=== PATIENT | female | born 1995 | race Hispanic/Latino ===

== ENCOUNTER 2016-08-07 15:44 | Emergency (ER) | payer OTHER ==
[~2016-08-07] VITALS: Ht 154.9 cm; Wt 58.1 kg
[~2016-08-07 15:44] MED LIST: AMOXIL500 MG PO; AZITHROMYCIN1 GM PO; BACTRIM DS 8001 TAB PO; BENZONATATE200 M1 PO; DICLOXACILLIN250 MG PO; IBUPROFEN800 M1 PO; KEFLEX500 MG PO; LO LOESTRIN FE1 TAB PO; LOTRIMIN CR1 %/30 GM TOP; MEDROL DOSEPAK1 PAC PO; MEDROL4 M2 PO; MOBIC 15MG15 MG PO; PERCOCET 325 MG1 TA2 PO; PREDNISONE 20MG20 MG PO; PROTONIX 40MG T40 MG PO; PROVENTIL HFA6.7 GM INH; TAMIFLU75 M1 PO; TESSALON PERLE100 M1 PO; TRAMADOL HCL50 M1 PO; ZOFRAN ODT4 MG PO; ZOFRAN4 MG PO
--- NOTE | 2016-08-07 19:51 | ED GENERAL ADULT ---
History of Present Illness General Chief Complaint: General Adult Stated Complaint: CYST ON RIGHT SIDE, CHILLS, NAUSEOUS Source: patient Exam Limitations: no limitations Vital Signs & Intake/Output Vital Signs & Intake/Output Vital Signs Date Time Temp Pulse Resp B/P Pulse O2 O2 Flow FiO2 Ox Delivery Rate 08/07 2257 98.4 97 18 107/66 99 Room Air 08/07 2039 98.2 96 18 105/67 98 Room Air 08/07 1556 100.1 110 18 134/78 97 Room Air Allergies Coded Allergies: methylprednisolone (Severe, RAPID HEARTBEAT, SOB 02/07/16) Uncoded Allergies: SEASONAL (09/16/15) Reconcile Medications Dicloxacillin Sodium 500 MG CAPSULE 1 CAP PO 4 TIMES/DAY breast cellulitis Tramadol HCl 50 MG TABLET 1 TAB PO BIDP PRN pain Triage Note: PT TO TRIAGE WITH C/O R BREAST AND R UNDERARM PAIN STARTED 1HR MANAGER SURGERY, +CHILLS, +NAUSEA. HX OF R BREAST ABSCESS IN JANUARY AND APRIL. TEMP 100.1 IN TRIAGE. Triage Nurses Notes Reviewed? yes Onset: Gradual Duration: day(s): (1) Timing: recent history Injury Environment: home Severity: moderate Severity Numbers: 8 No Modifying Factors: none : No Patient currently breastfeeds: No HPI: Patient is a 21-year-old female presenting to the emergency department with chief complaint of increasing of right breast pain, redness, malaise, tactile fever since this afternoon. Also complaining about body aches. She recently had low too weak. She does not think she has of low again. She has history of abscesses that were drained on the right breast, most recently done in June. She tried Valium Prednicen-M but they were not available. Pain is worse with palpation. Denies taking anything for pain at home. Positive nausea without vomiting. No diarrhea. Denies any urinary symptoms. Denies chance of . Just finished her last menstrual cycle. (ANTIONETTE FRANCISCO,PHONG) Past History Travel History Traveled to [place] past 21 day No Medical History Any Pertinent Medical History? see below for history Neurological: NONE EENT: NONE Cardiovascular: NONE Respiratory: NONE Gastrointestinal: NONE Hepatic: NONE Renal: NONE Musculoskeletal: NONE Psychiatric: NONE Endocrine: LOW BLOOD SUGAR AND LOW THYROID LEVELS BUT NOT REQUIRING MEDICATIONS Blood Disorders: NONE Cancer(s): NONE SCRAP DROP ENGINEER/Reproductive: NONE Surgical History Surgical History: R EYE SURGERY Psychosocial History What is your primary language Italian Tobacco Use: Never used Family History Hx Contributory? No (PHONG HEREDIA) Review of Systems Review of Systems Constitutional: Reports: fever, malaise. Comments Review of systems: See HPI, All other systems negative. Constitutional, no weight loss HEENT: No visual changes no sore throat no congestion Cardiovascular: No chest pain ,palpitation , orthopnea or ankle swelling Skin, no jaundice Respiratory: No dyspnea cough sputum or hemoptysis GI: No nausea no vomiting : No dysuria No hematuria Muscle skeletal: no back pain, no neck pain, Neurologic: No numbness no confusion Psych: No stress anxiety or depression,. Heme/endocrine: No bruising no bleeding no polyuria or polydipsia Immunology: No splenectomy or history of AIDS (PHONG HEREDIA) Physical Exam Physical Exam General Appearance: well developed/nourished, no apparent distress, alert, awake , comfortable Comments: Well-developed well-nourished person in no acute distress HEENT: Pupils equally round and reactive to light and accommodation. Nose is atraumatic. Neck: Supple, no lymphadenopathy, normal range of motion without pain or tenderness Back: Nontender, no CVA tenderness. Cardiovascular: Regular rate and rhythms no murmurs rubs or gallops, normal JVP Respiratory: Chest nontender. No respiratory distress.breath sounds clear to auscultation bilaterally breast: tender to palpation over the central aspect of the right breast with mild erythema surrounding the right nipple. no nipple discahrge. no palpable abscess. no palpable nodes in the axiallary region on the right. Abdomen: Soft, nontender nondistended, no appreciable organomegaly. Normal bowel sounds. No ascites Extremity: No edema Neuro: Alert oriented x3 Skin: No appreciable rash on exposed skin, skin is warm and dry. Psych: Mood and affect is normal, memory and judgment is normal. Core Measures ACS in differential dx? No CVA/TIA Diagnosis: No Severe Sepsis Present: No Septic Shock Present: No (PHONG HEREDIA) Progress Differential Diagnoses I considered the following diagnoses in my evaluation of the patient: cellulitis , abscess, abrasion, cyst, breast ca Plan of Care: Orders Procedure Date/time Status Add-on Test (ER Only) 08/07 2042 Active LACTIC ACID 08/07 2005 Complete BLOOD CULTURE 08/07 1949 Active URINE 08/07 1949 Complete URINALYSIS 08/07 1949 Complete COMPREHENSIVE METABOLIC PANEL 08/07 1949 Complete CBC WITHOUT DIFFERENTIAL 08/07 1949 Complete Laboratory Tests 08/07/162128: Urine Color YEL, Urine Clarity HAZY H, Urine pH 7.5, Ur Specific [place] 1.020, Urine Protein TRACE H, Urine Ketones >=80, Urine Nitrite NEG, Urine Bilirubin NEG, Urine Urobilinogen 0.2, Ur Leukocyte Esterase NEG, Ur Microscopic SEDIMENT EXAMINED, Urine RBC 1-3, Ur Epithelial Cells FEW, Urine Hemoglobin SMALL H, Urine Glucose NEG, Urine Test NEGATIVE 08/07/162005: Anion Gap 12, Estimated GFR > 60, BUN/Creatinine Ratio 16.7, Glucose 92, Lactic Acid 0.9, Calcium 9.4, Total Bilirubin 1.0, AST 19, ALT 25, Alkaline Phosphatase 64, Total Protein 7.4, Albumin 4.3, Globulin 3.1, Albumin/Globulin Ratio 1.4, CBC w Diff MAN DIFF ORDERED, RBC 4.41, MCV 84.5, MCH 29.1, RDW 12.6, MPV 9.0, Gran % 92.0 H, Lymphocytes % 2.5 L, Monocytes % 5.4, Eosinophils % 0, Basophils % 0.1, Absolute Granulocytes 15.6 H, Segmented Neutrophils 73, Band Neutrophils 20 H, Absolute Lymphocytes 0.4 L, Lymphocytes 3 L, Monocytes 4, Absolute Monocytes 0.9 H, Absolute Eosinophils 0, Absolute Basophils 0, Platelet Estimate ADEQUATE, Normocytic RBCs VERIFIED, Normochromic RBCs VERIFIED , PUBS MCHC 34.4 Microbiology 08/07 2035 BLOOD: Blood Culture - RECD 08/07 2005 BLOOD: Blood Culture - RECD 08/07 1949 NASOPHARYN: Influenza Virus A & B Rapid Smear - CAN Cancelled: Cancelled via OE: Per MD Decision Diagnostic Imaging: Viewed by Me: CT Scan. Discussed w/RAD: CT Scan. Radiology Impression: PATIENT: LADY NAVARRO PRESENT AGE: 21 PATIENT ACCOUNT NO: [id number] : 93 LOCATION: [facility] ORDERING PHYSICIAN: PHONG FRANCISCO SERVICE DATE: 08/07/16-2056 EXAM TYPE: CAT - CT CHEST W IV CONTRAST EXAMINATION: CT CHEST WITH CONTRAST CLINICAL INFORMATION: Pain and fever. Evaluate for breast abscess. COMPARISON: CTA chest 02/27/2015. Right breast ultrasound 02/12/2016. TECHNIQUE: Multidetector volumetric CT imaging of the chest was obtained after the administration of 95 mL of Optiray 320 intravenous contrast without immediate adverse reactions. Axial MIP volume rendering provided. Sagittal and coronal reformatted images were obtained. DLP: 150 2P the lower pole of the mGy-cm FINDINGS: BYPRODUCTS SUPERVISOR: Tower Equipment Installer view of the chest demonstrates symmetric pulmonary inflation. LUNGS: The lungs are well-expanded and clear without focal airspace consolidation. No suspicious pulmonary nodules or masses are identified. The central airways are patent, without endobronchial obstructing lesions. MEDIASTINUM: Normal heart size, without significant pericardial effusion. Normal three-vessel branching of the aortic arch. Normal caliber of the thoracic aorta. No large central pulmonary emboli. Minimal soft tissue within the anterior mediastinum is favored to represent residual thymic tissue given the patient's age. No significant mediastinal or hilar adenopathy. PLEURA: No pleural effusions or pneumothoraces. CHEST WALL: Questionable mild skin thickening within the periareolar region of the right breast. No rim- enhancing organizing fluid collections within the soft tissues of the bilateral breasts to suggest breast abscess. AXILLA: No significant axillary adenopathy. UPPER ABDOMEN: No acute findings within the upper abdomen. OSSEOUS STRUCTURES: No acute osseous abnormality. Normal alignment of the imaged thoracic spine. IMPRESSION: Questionable skin thickening within the periareolar region of the right breast. Correlate with physical exam. No rim-enhancing fluid collections within the soft tissues of the bilateral breasts to suggest breast abscess. DICTATED BY: TONY GUSTAFSON MD DATE/TIME DICTATED:08/07/162230 CENTRAL COMMUNICATIONS SPECIALIST:QI DATE/TIME TRANSCRIBED:08/07/162230 CONFIDENTIAL, DO NOT COPY WITHOUT APPROPRIATE AUTHORIZATION. <Electronically signed in Other Vendor System> SIGNED BY: TONY GUSTAFSON MD 08/07/16 1790 Initial ED EKG: none Comments: 08/07/2016 9:19:30 PM and I'll patient is febrile no acute distress of significant tenderness to palpation of the right breast. There is mild erythema noted over this area. No palpable abscess. Patient will have CBC, CMP, blood cultures. IV fluids, IV Unasyn initiated. Patient also will receive Toradol for pain. 08/07/2016 11:00:41 PM patient feeling much better after IV hydration, Unasyn and Toradol. Patient reports that the pain is pretty much gone. She was informed of all lab work results. She does have elevated white blood cell count with bandemia. CT scan shows thickening of the skin over the right breast which could indicate cellulitis. No obvious abscess. Patient will be treated with dicloxacillin. Also given tramadol for pain. She'll follow-up with the breast center in the next 1-2 days. She'll return for worsening symptoms or concerns. (PHONG HEREDIA) Departure Departure Time of Disposition: 2246 Disposition: HOME OR SELF CARE Condition: Stable Clinical Impression Primary Impression: Cellulitis Qualifiers: Site of cellulitis: trunk Site of cellulitis of trunk: chest wall Qualified Code: L03.313 - Cellulitis of chest wall Secondary Impressions: Leukocytosis Qualifiers: Leukocytosis type: bandemia Qualified Code: D72.825 - Bandemia Referrals: RUBIN DIEGO (PCP/Family) Additional Instructions: Follow-up with the breast center call to make an appointment. Take antibiotics as prescribed. Take tramadol as prescribed for pain. Return for worsening symptoms or concerns. Departure Forms: Customer Survey General Discharge Information Prescriptions: Current Visit Scripts Tramadol HCl 1 TAB PO BIDP PRN pain #10 TAB Dicloxacillin Sodium 1 CAP PO 4 TIMES/DAY #40 CAP (PHONG HEREDIA) PA/PUPPET MAKER Co-Sign Statement Statement: ED Attending supervision documentation- [] I saw and evaluated the patient. I have also reviewed all the pertinent lab results and diagnostic results. I agree with the findings and the plan of care as documented in the PA's/PUPPET MAKER's documentation. x I have reviewed the ED Record and agree with the PA's/PUPPET MAKER's documentation. [] Additions or exceptions (if any) to the PAs/PUPPET MAKER's note and plan are summarized below: [] (ROBBY HORNER,PADMA) Critical Care Note Critical Care Note Critical Care Time: non-applicable (PHONG HEREDIA)
[2016-08-07 20:22] LABS: ABSOLUTE BASOPHIL COUNT 0 /CUMM (0.0-0.2); ABSOLUTE EOSINOPHIL COUNT 0 /CUMM (0.0-0.7); ABSOLUTE GRANULOCYTE CT 15.6 /CUMM (1.4-6.5); ABSOLUTE LYMPH COUNT 0.4 /CUMM (1.2-3.4); ABSOLUTE MONOCYTE COUNT 0.9 /CUMM (0.10-0.60); BASOPHIL % 0.1 % (0.0-2.0); EOSINOPHIL % 0 % (0-5); HEMATOCRIT 37.2 % (37-47); MEAN CORPUSCULAR HGB 29.1 PG (27.0-31.0); MEAN CORPUSCULAR HGB CONC 34.4 G/DL (33.0-37.0); MEAN CORPUSCULAR VOLUME 84.5 FL (81.0-99.0); PLATELET COUNT 215 /CUMM (130-400); RBC DISTRIBUTION WIDTH 12.6 % (11.5-14.5); RED BLOOD CELL CT 4.41 /CUMM (4.20-5.40); WHITE BLOOD CELL COUNT 16.9 /CUMM (4.8-10.8)
--- NOTE | 2016-08-07 22:44 | CT SCAN REPORT ---
EXAMINATION: CT CHEST WITH CONTRAST CLINICAL INFORMATION: Pain and fever. Evaluate for breast abscess. COMPARISON: CTA chest 02/27/2015. Right breast ultrasound 02/12/2016. TECHNIQUE: Multidetector volumetric CT imaging of the chest was obtained after the administration of 95 mL of Optiray 320 intravenous contrast without immediate adverse reactions. Axial MIP volume rendering provided. Sagittal and coronal reformatted images were obtained. DLP: 150 2P the lower pole of the mGy-cm FINDINGS: GUEST EXPERIENCE SPECIALIST: [employer] Sprayer view of the chest demonstrates symmetric pulmonary inflation. LUNGS: The lungs are well-expanded and clear without focal airspace consolidation. No suspicious pulmonary nodules or masses are identified. The central airways are patent, without endobronchial obstructing lesions. MEDIASTINUM: Normal heart size, without significant pericardial effusion. Normal three-vessel branching of the aortic arch. Normal caliber of the thoracic aorta. No large central pulmonary emboli. Minimal soft tissue within the anterior mediastinum is favored to represent residual thymic tissue given the patient's age. No significant mediastinal or hilar adenopathy. PLEURA: No pleural effusions or pneumothoraces. CHEST WALL: Questionable mild skin thickening within the periareolar region of the right breast. No rim-enhancing organizing fluid collections within the soft tissues of the bilateral breasts to suggest breast abscess. AXILLA: No significant axillary adenopathy. UPPER ABDOMEN: No acute findings within the upper abdomen. OSSEOUS STRUCTURES: No acute osseous abnormality. Normal alignment of the imaged thoracic spine. IMPRESSION: Questionable skin thickening within the periareolar region of the right breast. Correlate with physical exam. No rim-enhancing fluid collections within the soft tissues of the bilateral breasts to suggest breast abscess.
[2016-08-07] MEDS ORDERED: DICLOXACILLIN500 M2 PO ×2 (22:49→22:51)
[2016-08-07] MEDS ORDERED: TRAMADOL HCL50 M1 PO ×2 (22:49→22:51)
[2016-08-07 22:57] VITALS: BP 107/66
== END 2016-08-07 22:58 ==
LOC: ERH 15:44
PROVIDERS: Physician Assistant
DX: L03.313 Cellulitis of chest wall (principal); D72.829 Elevated white blood cell count, unspecified
CPT/HCPCS: 81001; 81025; 87040; 87804; 87804-59; 96361; 96374; 96375; J1885; J2405

== ENCOUNTER 2017-08-22 16:42 | Emergency (ER) | payer OTHER ==
[~2017-08-22] VITALS: Ht 154.9 cm; Wt 63.5 kg
[~2017-08-22 16:42] MED LIST changes: +DICLOXACILLIN500 M2 PO
[2017-08-22 16:47] VITALS: BP 132/82
[2017-08-22] MEDS ORDERED: CHERATUSSIN AC118 M1 PO (19:22)
[2017-08-22] MEDS ORDERED: AMOXICILLIN500 M3 PO (19:22)
--- NOTE | 2017-08-22 19:23 | ED INFLUENZA/URI COMPLAINT ---
History of Present Illness General Chief Complaint: Sore Throat, Dental Pain Stated Complaint: WHEEZING,THROAT PAIN Source: patient Exam Limitations: no limitations Vital Signs & Intake/Output Vital Signs & Intake/Output Vital Signs Date Time Temp Pulse Resp B/P B/P Pulse O2 O2 Flow FiO2 Mean Ox Delivery Rate 08/22 1647 98.5 91 15 132/82 98 Room Air Room Air Allergies Coded Allergies: methylprednisolone (Severe, RAPID HEARTBEAT, SOB 08/22/17) Uncoded Allergies: SEASONAL (09/16/15) Reconcile Medications Amoxicillin 500 MG TABLET 1 TAB PO BID PHARYNGITIS Codeine Phosphate/Guaifenesi (Cheratussin AC Syrup) 10 MG-100 MG/5 ML LIQUID 10 ML PO Q6H PRN COUGH Dicloxacillin Sodium 500 MG CAPSULE 1 CAP PO 4 TIMES/DAY breast cellulitis Tramadol HCl 50 MG TABLET 1 TAB PO BIDP PRN pain Triage Note: PT TO ED FOR C/C OF SORE THROAT "WITH BUMPS" AND WHEEZING COUGH. SEEN AT WALK IN ON THURSDAY AND HAD NEGATIVE STREP AND FLU SWAB. Triage Nurses Notes Reviewed? yes Onset: Abrupt Duration: day(s): (4-5), constant, continues in ED, getting worse Timing: single episode today Severity: mild, moderate Severity Numbers: 7 Prior Episodes/Possible Cause: no prior episodes No Modifying Factors: none Associated Symptoms: cough, muscle aches, nasal congestion, nasal drainage, sore throat, wheezing LMP (ages 10-50): unknown : No Patient currently breastfeeds: No HPI: 22-year-old female with no past medical history visits for evaluation of sore throat, cough, congestion and wheezing. Patient states symptoms are going on for for 5 days getting worse. She was seen in urgent care several days ago diagnosed with viral pharyngitis. She was symptomatic treatment with pro-air inhaler Tylenol and ibuprofen. She reports a history of asthma but is allergic to oral steroids. She denies any hemoptysis lower extremity edema or recent surgery recent trauma. No control. She has had bronchitis in the past like this is similar. She reports cough that is dry. Pain is worse with swallowing but she is able tolerate fluids. No abdominal pain or chest pain. SHE DOES NOT SMOKE. (Wilder Pearson) Past History Travel History Traveled to [place] past 21 day No Medical History Any Pertinent Medical History? see below for history Neurological: NONE EENT: NONE Cardiovascular: NONE Respiratory: NONE Gastrointestinal: NONE Hepatic: NONE Renal: NONE Musculoskeletal: NONE Psychiatric: NONE Endocrine: LOW BLOOD SUGAR AND LOW THYROID LEVELS BUT NOT REQUIRING MEDICATIONS Blood Disorders: NONE Cancer(s): NONE SPECIMEN COLLECTOR/Reproductive: NONE Surgical History Surgical History: R EYE SURGERY Psychosocial History What is your primary language Serbian Tobacco Use: Never used ETOH Use: occasional use Illicit Drug Use: denies illicit drug use Family History Hx Contributory? No (Wilder Pearson) Review of Systems Review of Systems Constitutional: Reports: no symptoms. EENTM: Reports: see HPI, nasal congestion, throat pain. Respiratory: Reports: see HPI, cough, wheezing. Cardiovascular: Reports: no symptoms. GI: Reports: no symptoms. Genitourinary: Reports: no symptoms. Musculoskeletal: Reports: no symptoms. Skin: Reports: no symptoms. Neurological/Psychological: Reports: no symptoms. Hematologic/Endocrine: Reports: no symptoms. Immunologic/Allergic: Reports: no symptoms. All Other Systems: Reviewed and Negative (Wilder Pearson) Physical Exam Physical Exam General Appearance: well developed/nourished, no apparent distress, alert, awake Head: atraumatic, normal appearance Eyes: Bilateral: normal appearance, PERRL, EOMI. Ears, Nose, Throat: moist mucous membrane, Tympanic normal, nasal congestion, nasal drainage (CLEAR), pharyngeal erythema, TONSILS ARE 3+ BILATERALLY MILDLY ERYTHEMATOUS WITH ULCERATIONS. nO EXUDATE UVULA RISES MIDLINE. PATIENT HANDLING SECRETIONS NO TRISMUS Neck: normal inspection, supple, full range of motion, lymphadenopathy (R), lymphadenopathy (L), NO POSTERIOR LYMPHADENOPATHY Respiratory: normal breath sounds, chest non-tender, no respiratory distress, lungs clear Cardiovascular: regular rate/rhythm, normal peripheral pulses Peripheral Pulses: 2+ radial (R), 2+ radial (L) Gastrointestinal: soft, non-tender Back: normal inspection, normal range of motion, no vertebral tenderness Extremities: normal inspection, normal range of motion, no edema Neurologic/Psych: no motor/sensory deficits, awake, alert, oriented x 3, normal gait, normal mood/affect Skin: intact, normal color, warm/dry Lymphatic: no anterior cervical wendy Core Measures Sepsis Present: No Sepsis Focused Exam Completed? No (Wilder Pearson) Progress Differential Diagnosis: influenza, otitis, pneumonia, pharyngitis, sinusitis, MONO, ACUTE BRONCHITIS, ASTHMA EXACERBATION, SINUSITIS Plan of Care: Orders Procedure Date/time Status THROAT CULTURE W/QUICK STREP 08/22 1651 Active Evaluated. Her lungs are clear to auscultation. Vital signs are stable she's afebrile. There are some of the pharyngitis including lymphadenopathy tonsillar erythema and ulcerations. Strep test is negative. Since patient is currently aware she'll be placed on antibiotics. Advised her to use Tylenol or IBUProfen for pain. Also warm saltwater gargles throat lozenges throat sprays. Flonase for congestion. Continue pro-air inhaler. Cheratussin for cough this may cause drowsiness. Make a follow-up with her primary care doctor as soon as possible. Discussed return precautions patient appears well she agrees. Initial ED EKG: none (Wilder Pearson) Departure Departure Disposition: HOME OR SELF CARE Condition: Stable Clinical Impression Primary Impression: Pharyngitis Qualifiers: Pharyngitis/tonsillitis etiology: unspecified etiology Qualified Code: J02.9 - Acute pharyngitis, unspecified Referrals: Mikaela Al MD (PCP/Family) Additional Instructions: Rest and drink plenty of fluids. Take antibiotics as directed for the full course. Use Tylenol and Profen as needed for pain. Cheratussin as needed for cough. This may cause drowsiness. Use pro-air inhaler 2 puffs every 4-6 hours as needed for cough or shortness of breath. Warm fluids or SALT water gargles TO SOOTH YOUR throat. Make a follow-up with [facility] primary care doctor. Monitor symptoms closely return if any concerns. Departure Forms: Customer Survey General Discharge Information Prescriptions: Current Visit Scripts Amoxicillin 1 TAB PO BID #20 TAB Codeine Phosphate/Guaifenesi (Cheratussin AC Syrup) 10 ML PO Q6H PRN COUGH #240 ML (Wilder Pearson) PA/CAN SOLDERER Co-Sign Statement Statement: ED Attending supervision documentation- [] I saw and evaluated the patient. I have also reviewed all the pertinent lab results and diagnostic results. I agree with the findings and the plan of care as documented in the PA's/CAN SOLDERER's documentation. [X] I have reviewed the ED Record and agree with the PA's/CAN SOLDERER's documentation. [] Additions or exceptions (if any) to the PAs/CAN SOLDERER's note and plan are summarized below: [] (Kristina HORNER,Williams Awan)
== END 2017-08-22 19:27 ==
LOC: ERH 16:42
DX: J02.9 Acute pharyngitis, unspecified (principal)